=== PATIENT | female | born 1945 | race Caucasian/White ===

== ENCOUNTER 2019-12-17 09:01 | Emergency (ER) | payer OTHER, SELFPAY ==
--- NOTE | ~2019-12-17 | XR_ITS ---
XR hip LT 2V w AP pelvis DATE: 12/17/2019 10:33 INDICATION: Fall. Left hip pain. TECHNIQUE: AP pelvis. AP and lateral views of left hip COMPARISON: None FINDINGS: There is prominent degenerative disc disease at L4-5 and L5-S1. No pelvic fracture or bone destruction. The pubic symphysis and sacroiliac joints are intact. Hip joint spaces are symmetric and well preserved. IMPRESSION: Prominent degenerative disc disease at L4-5 and L5-S1 No pelvic or left hip fracture or dislocation Reviewed, dictated and finalized at location A.
--- NOTE | ~2019-12-17 | XR_ITS ---
EXAMINATION: XR tibia fibula RT 2V INDICATION: Right leg pain TECHNIQUE: Two views of the right tibia and fibula are obtained. COMPARISON: None available FINDINGS: There is mild osteoarthritis of the knee. No fracture or subluxation. Calcified atheroscler osis is noted. Bone alignment is normal. IMPRESSION: 1. No acute osseous abnormality. Reviewed, dictated and finalized at location B.
--- NOTE | ~2019-12-17 | CT_ITS ---
EXAMINATION: CT facial bones wo con DATE: 12/17/2019 10:19 INDICATION: Facial pain, head injury TECHNIQUE: Computed tomography (CT) of the facial bones and maxillofacial region was performed withou t intravenous contrast. The dose-length product (DLP) was 483.35 mGy-cm. Automated exposure control a nd iterative reconstruction technique were employed. COMPARISON: None. FINDINGS: No facial bone fracture is identified. The globes are intact. The visualized paranasal sinu ses are clear. There is severe spondylosis of the partially visualized cervical spine. IMPRESSION: 1. No facial bone fracture. Reviewed, dictated and finalized at location B. IMPRESSION: 1. No facial bone fracture.
--- NOTE | ~2019-12-17 | XR_ITS ---
XR shoulder LT min 2V DATE: 12/17/2019 10:33 INDICATION: Fall. Left shoulder injury, pain TECHNIQUE: 4 views COMPARISON: None FINDINGS: There is diffuse osteopenia. No fracture or dislocation, periosteal reaction or bone destr uction. No abnormal soft tissue calcification. Degenerative changes of the cervical spine. Multiple axillary surgical clips. IMPRESSION: Osteopenia No fracture or dislocation Reviewed, dictated and finalized at location A.
--- NOTE | ~2019-12-17 | CT_ITS ---
EXAMINATION: CT brain wo con INDICATION: Head injury COMPARISON: 07/17/2015 TECHNIQUE: Standard unenhanced head CT. The dose-length product (DLP) was 605.33 mGy-cm. The mA was a djusted according to patient size. Iterative reconstruction technique was employed. FINDINGS: There is no acute intraparenchymal hemorrhage. No evidence of mass lesion. No evidence of a cute infarction. There is mild periventricular and subcortical hypodensity probably related to small vessel ischemic disease. There is mild prominence of the sulci and ventricles related to cerebral atr ophy. Intracranial calcified cerebral atherosclerosis is noted. There are no extra-axial collections. There is no mass effect or midline shift. Changes in the globes are likely from ocular lens surgery. The visualized sinuses and mastoid air cells are well aerated. IMPRESSION: 1. No acute intracranial abnormality. 2. Age related findings. Reviewed, dictated and finalized at location B.
[2019-12-17 09:03] VITALS: PULSE 94; RESP 17; TEMP 37.1; O2SAT 97
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
[2019-12-17 11:06] VITALS: BP 158/99; PULSE 78; RESP 16; O2SAT 100
== END 2019-12-17 11:07 | disposition home or self-care (01) ==
PROVIDERS: Emergency Provider General Practice
DX: S00.12XA Contusion of left eyelid and periocular area, initial encounter (principal); S00.11XA Contusion of right eyelid and periocular area, initial encounter; S80.12XA Contusion of left lower leg, initial encounter; S40.012A Contusion of left shoulder, initial encounter; E78.5 Hyperlipidemia, unspecified; Y04.8XXA Assault by other bodily force, initial encounter
CPT/HCPCS: 70450; 70486; 73030; 73502; 73590; 99284

== ENCOUNTER 2020-07-22 14:49 | Outpatient (CLI) | payer OTHER, MEDICARE, SELFPAY | END 2020-07-22 14:50 | disposition home or self-care (01) | LOC: ANHCOVIDVC 14:49 | PROVIDERS: PCP Internal Medicine | DX: Z23 Encounter for immunization (principal) | CPT/HCPCS: 0001A; 91300 ==

== ENCOUNTER 2020-08-12 14:48 | Outpatient (CLI) | payer OTHER, MEDICARE, SELFPAY | END 2020-08-12 14:49 | disposition home or self-care (01) | LOC: ANHCOVIDVC 14:48 | PROVIDERS: PCP Internal Medicine | DX: Z23 Encounter for immunization (principal) | CPT/HCPCS: 0002A; 91300 ==